=== PATIENT | female | born 1995 | race Caucasian/White ===

== ENCOUNTER 2017-11-28 02:31 | Emergency (ER) | payer BC, SELFPAY ==
[2017-11-28] VITALS (7 sets, daily range): BP systolic 124–148; BP diastolic 73–106; PULSE 99–110; RESP 11–23; TEMP 36.6; O2SAT 96–100; BMI 28.8
[2017-11-28] MEDS: Ondansetron 4 MG/2 ML Vial IV (02:49)
[2017-11-28] MEDS: 0.9% Normal Saline 1,000 ML 1000 ML IV (02:49)
--- NOTE | 2017-11-28 02:55 | RAD_ITS ---
STUDY: X-RAY - RIGHT SHOULDER REASON FOR EXAM: Female, 22 years old. Fall TECHNIQUE: 3 view(s) of the shoulder. COMPARISON: 08/12/2016 FINDINGS: Anteroinferior glenohumeral dislocation. Normal acromioclavicular joint. Normal acromion. No fractures are seen. The soft tissue structures are unremarkable. Normal visualized pulmonary apex. RAD/Shoulder min 2 Views IMPRESSION: Glenohumeral dislocation without visible fracture. Electronically Signed: Anurag Garcia MD at 3:23 EST Tel , Service support ,
[2017-11-28] MEDS: Propofol 200 MG/20 ML Vial IV BOLUS (03:45)
--- NOTE | 2017-11-28 03:55 | RAD_ITS ---
STUDY: X-RAY - RIGHT SHOULDER REASON FOR EXAM: Female, 22 years old. Post reduction TECHNIQUE: 3 view(s) of the shoulder. COMPARISON: Same day FINDINGS: Successful glenohumeral reduction. Normal acromioclavicular joint. Normal acromion. Normal humeral head and visualized proximal humerus. The soft tissue structures are unremarkable. Normal visualized pulmonary apex. RAD/Shoulder min 2 Views IMPRESSION: Successful glenohumeral reduction. No fractures are seen. Electronically Signed: Anurag Garcia MD at 4:28 EST Tel , Service support ,
--- NOTE | 2017-11-28 04:17 | ED.DCSUM_ITS ---
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 She reports that today she slipped on the ice fell and dislocated her right shoulder. She reports that she has had this happen once in the past. She denies any other injuries. No blow to the head or loss of consciousness. She denies any paresthesias in her hand. States pain is sharp and 10 out of 10 with movement. Senna 10 at rest. She is right-hand dominant. Physical Examination: Vitals: Stable. Afebrile. Neck: No vertebral tenderness. Full ROM without difficulty. Cleared by NEXUS criteria. Back: No vertebral tenderness. General: A&O x 3. NAD. Cardiovascular exam: Regular rate and rhythm, no murmur, rub or gallop. Respiratory exam: Chest nontender. No crepitus. Clear to auscultation bilaterally. No wheezes or stridor. Abdominal exam: Soft, nontender, nondistended, normal bowel sounds. No pain in RUQ or LUQ specifically. No peritoneal signs. Extremity: Obvious deformity of her right shoulder. Severely tender to palpation. She is neurovascular intact distal this. Test Results: X-ray shows an anterior dislocation. Repeat x-ray shows a reduction without fracture. Emergency Department Course and Treatment: She had an IV placed. She had procedural sedation undertaken with propofol. This was reduced without difficulty. She is placed in a sling and swath. Treatment Plan: She will be discharged with [place]. Instructed follow-up Dr. Garza in 1 week for another exam. Disposition: To home in improved and stable condition. Impression: 1. Right shoulder dislocation. 2. Procedural sedation. 3. Reduction right shoulder dislocation. This note was generated with [employer] dictation software. It may contain incorrect words, spelling, and punctuation that were not noted in review of the chart prior to signing ED Disposition - Plan for ED Patient: Disposition: Home or Assisted Living Chief Complaint: Upper Extremity Injury Instructions: ED Dislocation Shoulder Redu Prescriptions: Naproxen [Naprosyn] 500 mg PO BID PRN #20 tablet Referrals: Davie Garza DO [STAFF PHYSICIAN] - 1 Week
[2017-11-28] MEDS: HYDROcodone Bitartrate/Apap 5/325 Tablet PO (04:26)
== END 2017-11-28 04:32 | disposition home or self-care (01) ==
LOC: ED 03:07
PROVIDERS: Emergency Provider Emergency Medicine
DX: S43.004A Unspecified dislocation of right shoulder joint, initial encounter (principal); W00.0XXA Fall on same level due to ice and snow, initial encounter; Y93.9 Activity, unspecified; Y92.89 Other specified places as the place of occurrence of the external cause; Y99.9 Unspecified external cause status
CPT/HCPCS: 23650; 73030; 96361; 96374; 96375; 99285; J7030; A4216; J2405